=== PATIENT | female | born 1990 | race Caucasian/White ===

== ENCOUNTER 2018-03-01 20:17 | Emergency (ER) | payer SELFPAY ==
[2018-03-01 20:40] VITALS: BP 113/73; PULSE 83; RESP 16; TEMP 98.2; O2SAT 100
--- NOTE | 2018-03-01 20:51 | ED PDOC ---
Arrival/HPI - General Historian: Patient - History of Present Illness Narrative History of Present Illness (Text): 03/01/18 20:46 27 y/o female, no significant pmh, nkda, last tetanus 3 years ago, c/o lt. hand laceration from knife about 1 hour ago. Pt. stated that she was cutting the vegatable, accidentally cut on the lt. hand thumb and 2nd digit, no numbness or tingling, no difficulty bending or extending, no night sweat, no rash, no dizziness, no change in vision, no other medical or psychological complaints. <Micheal Huffman - Last Filed: 03/01/18 21:18> <Dillon Adams - Last Filed: 03/02/18 05:43> - General Chief Complaint: Abnormal Skin Integrity Time Seen by Provider: 03/01/18 20:46 Past Medical History - Provider Review Nursing Documentation Reviewed: Yes - Psychiatric Hx Psychophysiologic Disorder: No Hx Substance Use: No <Micheal Huffman - Last Filed: 03/01/18 21:18> Family/Social History - Physician Review Nursing Documentation Reviewed: Yes Family/Social History: Unknown Family HX Smoking Status: Never Smoked Hx Alcohol Use: No Hx Substance Use: No <Micheal Huffman - Last Filed: 03/01/18 21:18> Allergies/Home Meds <Micheal Huffman - Last Filed: 03/01/18 21:18> <Dillon Adams - Last Filed: 03/02/18 05:43> Allergies/Adverse Reactions: Allergies No Known Allergies Allergy (Verified 03/01/18 20:33) Home Medications: Home Meds Medication Instructions Recorded Confirmed RX: No Known Home Med 03/01/18 03/01/18 Review of Systems - Review of Systems Constitutional: absent: Fatigue, Fevers Eyes: absent: Vision Changes ENT: absent: Hearing Changes Respiratory: absent: SOB, Cough Cardiovascular: absent: Chest Pain Gastrointestinal: absent: Abdominal Pain, Diarrhea, Nausea, Vomiting Skin: Laceration. absent: Rash, Pruritis Neurological: absent: Headache, Dizziness Endocrine: absent: Diaphoresis Psychiatric: absent: Anxiety, Depression, Suicidal Ideation <Micheal Huffman - Last Filed: 03/01/18 21:18> Physical Exam Vital Signs Reviewed: Yes Vital Signs Temp Pulse Resp BP Pulse Ox 03/01/18 20:34 98.2 F 83 16 113/73 100 Temperature: Afebrile Blood Pressure: Normal Pulse: Regular Respiratory Rate: Normal Appearance: Positive for: Well-Appearing, Non-Toxic, Comfortable Pain Distress: Mild Mental Status: Positive for: Alert and Oriented X 3 - Systems Exam Head: Present: Atraumatic, Normocephalic Pupils: Present: PERRL Extroacular Muscles: Present: EOMI Conjunctiva: Present: Normal Mouth: Present: Moist Mucous Membranes Neck: Present: Normal Range of Motion Respiratory/Chest: Present: Clear to Auscultation, Good Air Exchange. No: Respiratory Distress, Accessory Muscle Use Cardiovascular: Present: Regular Rate and Rhythm, Normal S1, S2. No: Murmurs Abdomen: No: Tenderness, Distention, Peritoneal Signs Back: Present: Normal Inspection Upper Extremity: Present: Normal Inspection, Other (lt. hand: visible superficial laceration 1cm on the lt. hand thumb pad, visible superficial c- shaped laceration on the 2nd digit middle phalanx region, no oozing or discharge, FROM without limitation, sensation intact, motor 5/5, +radial pulse, capillary refill< 2 seconds, neurovascular intact. ). No: Cyanosis, Edema Lower Extremity: Present: Normal Inspection. No: Edema Neurological: Present: GCS=15, CN II-XII Intact, Speech Normal Skin: Present: Warm, Dry, Normal Color. No: Rashes Psychiatric: Present: Alert, Oriented x 3, Normal Insight, Normal Concentration <Micheal Huffman - Last Filed: 03/01/18 21:18> Vital Signs Temp Pulse Resp BP Pulse Ox 03/01/18 20:34 98.2 F 83 16 113/73 100 <Dillon Adams - Last Filed: 03/02/18 05:43> Medical Decision Making ED Course and Treatment: 03/01/18 21:12 -Urine hcg -would suture. 03/01/18 21:18 -I was noted by the WEB SYSTEMS DEVELOPER that the patient eloped from the ER as she declined the suturing. -I went to the room and she is gone. She didn't stay for the against medical advisement paper. -pt. would be placed as elopement. <Micheal Huffman - Last Filed: 03/01/18 21:18> - PA / EMBOSSING TOOLSETTER / Resident Statement MD/DO has reviewed & agrees with the documentation as recorded. <Micheal Huffman - Last Filed: 03/01/18 21:18> Disposition/Present on Arrival - Present on Arrival Any Indicators Present on Arrival: No History of DVT/PE: No History of Uncontrolled Diabetes: No Urinary Catheter: No History of Decub. Ulcer: No History Surgical Site Infection Following: None - Disposition Have Diagnosis and Disposition been Completed?: Yes Disposition Time: 21:20 <Micheal Huffman - Last Filed: 03/01/18 21:18> - Present on Arrival Any Indicators Present on Arrival: No - Disposition Have Diagnosis and Disposition been Completed?: Yes <Dillon Adams - Last Filed: 03/02/18 05:43> - Disposition Diagnosis: Laceration of finger Disposition: ELOPEMENT - ER ONLY Condition: STABLE Referrals: PCP,NO [Primary Care Provider] - Follow up with primary Forms: [employer] (Telugu)
[2018-03-01] MEDS ORDERED: Lidocaine 1% Inj (20ml) IJ STA (21:08)
[2018-03-01] MEDS ORDERED: TDAP Vaccine 0.5 mL Syr IM ONE (21:08)
[2018-03-01] MEDS ORDERED: Lidocaine 1% 5ml Abboject ONE (21:17)
== END 2018-03-01 21:25 | disposition left against medical advice (07) ==
LOC: ED 20:17
DX: S61.012A Laceration without foreign body of left thumb without damage to nail, initial encounter (principal); W26.0XXA Contact with knife, initial encounter